=== PATIENT | male | born 2000 | race African-American/Black ===

== ENCOUNTER 2023-08-14 14:12 | Emergency (ER) | payer SELFPAY ==
[~2023-08-14] VITALS: Ht 167.6 cm; Wt 67.0 kg
[2023-08-14 14:28] VITALS: O2SAT 98
[2023-08-14] MEDS: LEVETIRACETAM 500MG PREMIX 100 ML IV ONE (15:00)
[2023-08-14 16:23] LABS: BASOPHILS % 0.2 % (0.0-2.0); EOSINOPHILS % 0.1 % (0.0-5.0); HEMATOCRIT. 44.6 % (42.0-52.0); HEMOGLOBIN. 14.4 g/dL (14.0-18.0); LYMPHOCYTES % 9.9 % (20.0-50.0); MEAN CORPUSCULAR HEMOGLOBIN 29.4 pg (28.0-32.0); MEAN CORPUSCULAR HGB CONC 32.3 g/dL (31.0-37.0); MEAN CORPUSCULAR VOLUME 91.1 fL (80.0-94.0); MEAN PLATELET VOLUME 8.4 fl (7.4-10.4); MONOCYTES % 6.8 % (2.0-8.0); PLATELET 261 x1000/uL (130-400); RED CELL DISTRIBUTION WIDTH 13.4 % (11.6-14.6); WHITE BLOOD COUNT 15.7 x1000/uL (4.5-11.0)
[2023-08-14 16:35] LABS: ALANINE AMINOTRANSFERASE 10 IU/L (10-49); ASPARTATE AMINOTRANSFERASE 34 IU/L (<34); BILIRUBIN TOTAL 0.7 mg/dL (0.1-1.0); CALCIUM 9.7 mg/dL (8.7-10.4); CARBON DIOXIDE 23 mEq/L (21-32); CHLORIDE 103 mEq/L (98-107); CREATININE 0.8 mg/dL (0.6-1.3); GLUCOSE 54 mg/dL (70-105); POTASSIUM 3.5 mEq/L (3.5-5.1); PROTEIN TOTAL 7.6 g/dL (6.0-8.3); SODIUM 139 mEq/L (136-145); UREA NITROGEN BLOOD 9 mg/dL (9-23)
[2023-08-14 17:40] VITALS: BP 118/76; PULSE 94; RESP 18; TEMP 98
== END 2023-08-14 17:44 | disposition home or self-care (01) ==
LOC: ER 14:12
DX: R56.9 Unspecified convulsions (principal)
CPT/HCPCS: 80053; 85025; 36415; 70450; 96374; 99285; J1953; Z7610

== ENCOUNTER 2023-10-14 14:14 | Emergency (ER) | payer SELFPAY ==
[~2023-10-14] VITALS: Ht 165.1 cm; Wt 61.2 kg
[2023-10-14 14:29] VITALS: BP 125/99; PULSE 60; RESP 16; TEMP 98.4; O2SAT 100
== END 2023-10-14 15:35 | disposition home or self-care (01) ==
LOC: ER 14:14
DX: R51.9 Headache, unspecified (principal)
CPT/HCPCS: 99281

== ENCOUNTER 2023-12-08 05:17 | Emergency (ER) | payer MEDICAID ==
[~2023-12-08] VITALS: Ht 167.6 cm; Wt 64.0 kg
[2023-12-08] MEDS: DEXAMETHASONE 4MG TABLET PO ONE (06:39)
[2023-12-08] MEDS ORDERED: IBUPROFEN 800MG TABLET PO ONE (09:00)
[2023-12-08] MEDS: IPRATROPIUM/ALBUTEROL 0.5-3(2.5)MG/3ML NEB HHN ONE (09:28)
[2023-12-08] MEDS: IPRATROPIUM/ALBUTEROL 0.5-3(2.5)MG/3ML NEB HHN NR (09:28)
[2023-12-08 09:30] VITALS: PULSE 72; RESP 20; O2SAT 98
[2023-12-08] MEDS ORDERED: ALBU6.7H15 INH (10:05)
[2023-12-08] MEDS ORDERED: P20 MT (10:05)
[2023-12-08] MEDS ORDERED: AMOX-494 MT (10:05)
[2023-12-08] MEDS: IBUPROFEN 800MG TABLET PO NR (10:21)
[2023-12-08 10:23] VITALS: BP 124/74; PULSE 72; RESP 12; TEMP 36.94740; O2SAT 98
== END 2023-12-08 10:32 | disposition home or self-care (01) ==
LOC: ER 05:17
DX: J32.9 Chronic sinusitis, unspecified (principal); J45.909 Unspecified asthma, uncomplicated; F17.210 Nicotine dependence, cigarettes, uncomplicated; F12.10 Cannabis abuse, uncomplicated; Z20.822 Contact with and (suspected) exposure to COVID-19
CPT/HCPCS: 87430; 87070; 71045; 94640; 99285; 87426; J8540; Z7610 ×6

== ENCOUNTER 2024-01-08 03:40 | Emergency (ER) | payer SELFPAY ==
[~2024-01-08] VITALS: Ht 165.1 cm; Wt 59.0 kg
[~2024-01-08 03:40] MED LIST: ALBU6.7H15 INH; AMOX-494 MT; P20 MT
[2024-01-08 03:45] VITALS: O2SAT 99
[2024-01-08 04:18] LABS: EOSINOPHILS % 0.3 % (0.0-5.0); HEMATOCRIT. 44.4 % (42.0-52.0); HEMOGLOBIN. 14.5 g/dL (14.0-18.0); LYMPHOCYTES % 31.8 % (20.0-50.0); MEAN CORPUSCULAR HEMOGLOBIN 30.2 pg (28.0-32.0); MEAN CORPUSCULAR HGB CONC 32.7 g/dL (31.0-37.0); MEAN CORPUSCULAR VOLUME 92.4 fL (80.0-94.0); MEAN PLATELET VOLUME 8.1 fl (7.4-10.4); NEUTROPHILS % 60.9 % (40.0-76.0); PLATELET 319 x1000/uL (130-400); RED BLOOD CELL COUNT 4.81 mill/uL (4.7-6.1); RED CELL DISTRIBUTION WIDTH 13.1 % (11.6-14.6); WHITE BLOOD COUNT 6.9 x1000/uL (4.5-11.0)
[2024-01-08 04:28] LABS: CHLORIDE 109 mEq/L (98-107); POTASSIUM 3.5 mEq/L (3.5-5.1); SODIUM 142 mEq/L (136-145)
[2024-01-08 04:29] LABS: CALCIUM 9.7 mg/dL (8.7-10.4); CARBON DIOXIDE 22 mEq/L (21-32)
[2024-01-08 04:34] LABS: CREATININE 0.8 mg/dL (0.6-1.3); GLUCOSE 99 mg/dL (70-105)
[2024-01-08 04:35] LABS: TROPONIN I HIGH SENSITIVITY < 4 ng/L (3.0-53); UREA NITROGEN BLOOD < 5 mg/dL (9-23)
[2024-01-08] MEDS ORDERED: LEVETIRACETAM 1000MG PREMIX 100 ML IV ONE (05:45)
[2024-01-08] MEDS: LEVETIRACETAM 1000MG PREMIX 100 ML IV NR (08:00)
[2024-01-08] MEDS ORDERED: B50 PO (09:47)
[2024-01-08 10:05] VITALS: BP 105/67; PULSE 69; RESP 18; TEMP 98.4
== END 2024-01-08 10:07 | disposition home or self-care (01) ==
LOC: ER 03:40
DX: R56.9 Unspecified convulsions (principal); F12.10 Cannabis abuse, uncomplicated
CPT/HCPCS: 80048; 80320; 85025; 84484; 36415; 71045; 93005; 96365; 99285; J1953; G0480

== ENCOUNTER 2024-02-24 01:19 | Emergency (ER) | payer MEDICAID ==
[~2024-02-24] VITALS: Ht 167.6 cm; Wt 55.8 kg
[~2024-02-24 01:19] MED LIST changes: +B50 PO
[2024-02-24 01:47] VITALS: BP 128/71; PULSE 98; RESP 15; TEMP 98.4; O2SAT 97
[2024-02-24 02:58] LABS: BASOPHILS % 0.7 % (0.0-2.0); EOSINOPHILS % 0.5 % (0.0-5.0); HEMATOCRIT. 42.9 % (42.0-52.0); HEMOGLOBIN. 13.5 g/dL (14.0-18.0); LYMPHOCYTES % 14.8 % (20.0-50.0); MEAN CORPUSCULAR HEMOGLOBIN 29.2 pg (28.0-32.0); MEAN CORPUSCULAR HGB CONC 31.5 g/dL (31.0-37.0); MEAN CORPUSCULAR VOLUME 92.5 fL (80.0-94.0); MEAN PLATELET VOLUME 7.6 fl (7.4-10.4); MONOCYTES % 6.5 % (2.0-8.0); NEUTROPHILS % 77.5 % (40.0-76.0); PLATELET 319 x1000/uL (130-400); RED BLOOD CELL COUNT 4.64 mill/uL (4.7-6.1); RED CELL DISTRIBUTION WIDTH 13.1 % (11.6-14.6); WHITE BLOOD COUNT 13.3 x1000/uL (4.5-11.0)
[2024-02-24 03:00] LABS: CHLORIDE 104 mEq/L (98-107); POTASSIUM 3.5 mEq/L (3.5-5.1); SODIUM 139 mEq/L (136-145)
[2024-02-24 03:01] LABS: CALCIUM 9.4 mg/dL (8.7-10.4); CARBON DIOXIDE 26 mEq/L (21-32)
[2024-02-24 03:06] LABS: CREATININE 0.8 mg/dL (0.6-1.3); GLUCOSE 88 mg/dL (70-105); UREA NITROGEN BLOOD 11 mg/dL (9-23)
[2024-02-24] MEDS: ACETAMINOPHEN 325MG TABLET PO STA (08:41)
== END 2024-02-24 09:59 | disposition home or self-care (01) ==
LOC: ER 01:19
DX: G40.909 Epilepsy, unspecified, not intractable, without status epilepticus (principal); F12.90 Cannabis use, unspecified, uncomplicated; R07.9 Chest pain, unspecified
CPT/HCPCS: 36415; 80048; 82962; 85025; 93005; 99284

== ENCOUNTER 2024-03-13 09:58 | Inpatient (IN) | payer OTHER, MEDICAID ==
[~2024-03-13] VITALS: Ht 165.1 cm; Wt 54.9 kg
[2024-03-13 10:41] LABS: BASOPHILS % 0.9 % (0.0-2.0); EOSINOPHILS % 2.3 % (0.0-5.0); HEMATOCRIT. 41.4 % (42.0-52.0); HEMOGLOBIN. 13.4 g/dL (14.0-18.0); LYMPHOCYTES % 47.4 % (20.0-50.0); MEAN CORPUSCULAR HEMOGLOBIN 30.1 pg (28.0-32.0); MEAN CORPUSCULAR HGB CONC 32.4 g/dL (31.0-37.0); MEAN PLATELET VOLUME 7.6 fl (7.4-10.4); MONOCYTES % 10.1 % (2.0-8.0); NEUTROPHILS % 39.3 % (40.0-76.0); PLATELET 312 x1000/uL (130-400); RED BLOOD CELL COUNT 4.45 mill/uL (4.7-6.1); RED CELL DISTRIBUTION WIDTH 12.7 % (11.6-14.6)
[2024-03-13 10:48] LABS: CHLORIDE 106 mEq/L (98-107); POTASSIUM 3.8 mEq/L (3.5-5.1); SODIUM 141 mEq/L (136-145)
[2024-03-13 10:49] LABS: CARBON DIOXIDE 29 mEq/L (21-32)
[2024-03-13 10:50] LABS: CALCIUM 9.2 mg/dL (8.7-10.4)
[2024-03-13 10:54] LABS: CREATININE 0.8 mg/dL (0.6-1.3); GLUCOSE 93 mg/dL (70-105); UREA NITROGEN BLOOD 7 mg/dL (9-23)
[2024-03-13] MEDS: LORAZEPAM 2MG/ML INJ IM ONE (11:27)
[2024-03-13] MEDS: ACETAMINOPHEN 500MG TABLET PO ONE (11:31)
[2024-03-13] MEDS: ONDANSETRON 4MG ODT PO ONE (11:33)
[2024-03-13] MEDS: LEVETIRACETAM 500MG PREMIX 100 ML IV ONE (12:07)
[2024-03-13] MEDS ORDERED: DOCUSATE SODIUM 100MG CAPSULE PO PRN (20:00)
[2024-03-13] MEDS ORDERED: ACETAMINOPHEN 325MG TABLET PO PRN (20:00)
[2024-03-13] MEDS ORDERED: MAGNESIUM/ALUMINUM HYDROXIDE/SIMETHICONE 30ML UDC PO PRN (20:00)
[2024-03-13] MEDS ORDERED: GUAIFENESIN 200MG/10ML SUGAR FREE UDC PO PRN (20:00)
[2024-03-13] MEDS ORDERED: CLONIDINE 0.1MG TABLET PO PRN (20:00)
[2024-03-13] MEDS ORDERED: LORAZEPAM 2MG/ML INJ IV PRN (20:00)
[2024-03-13] MEDS ORDERED: ONDANSETRON HCL 4MG/2ML INJ IV PRN (20:00)
[2024-03-13] MEDS ORDERED: LORAZEPAM 1MG TABLET PO PRN (20:00)
[2024-03-13] MEDS: ACETAMINOPHEN 325MG TABLET PO PRN (20:36)
[2024-03-13] MEDS: LEVETIRACETAM 500MG PREMIX 100 ML IV SCH (20:47)
[2024-03-13] MEDS: FAMOTIDINE 20MG/2ML VIAL IV SCH (20:49)
[2024-03-13] MEDS ORDERED: LEVETIRACETAM 500MG in NACL 100ML PREMIX IV SCH (21:00)
[2024-03-13 21:40] VITALS: BP 124/69; PULSE 76; RESP 20; TEMP 36.05844; TEMP 36.0844; O2SAT 99
[2024-03-13] MEDS: MVI, ADULT NO.1 10 ML, FOLIC ACID 1 MG, THIAMINE HCL 100 MG in SODIUM CHLORIDE 0.9% 1,0... IV SCH (23:43)
[2024-03-14] VITALS: BP 121/79; PULSE 68; RESP 19; TEMP 36.28068; O2SAT 100
[2024-03-14 00:51] LABS: IRON 229 ug/dL (65-175)
[2024-03-14 00:54] LABS: PHOSPHORUS 3.2 mg/dL (2.5-4.9); TOTAL IRON BINDING CAPACITY 457 ug/dl (250-425)
[2024-03-14 01:15] LABS: TROPONIN I HIGH SENSITIVITY < 4 ng/L (3.0-53)
[2024-03-14 04:00] VITALS: BP 114/72; PULSE 68; RESP 20; TEMP 36.78072; O2SAT 100
[2024-03-14 06:33] LABS: BASOPHILS % 0.5 % (0.0-2.0); EOSINOPHILS % 1.5 % (0.0-5.0); HEMOGLOBIN. 13.3 g/dL (14.0-18.0); LYMPHOCYTES % 39.2 % (20.0-50.0); MEAN CORPUSCULAR HGB CONC 32.3 g/dL (31.0-37.0); MEAN CORPUSCULAR VOLUME 92.7 fL (80.0-94.0); MEAN PLATELET VOLUME 8.4 fl (7.4-10.4); MONOCYTES % 7.4 % (2.0-8.0); NEUTROPHILS % 51.4 % (40.0-76.0); PLATELET 281 x1000/uL (130-400); RED BLOOD CELL COUNT 4.43 mill/uL (4.7-6.1); RED CELL DISTRIBUTION WIDTH 12.6 % (11.6-14.6)
[2024-03-14 06:49] LABS: CHLORIDE 104 mEq/L (98-107); POTASSIUM 3.4 mEq/L (3.5-5.1); SODIUM 140 mEq/L (136-145)
[2024-03-14 06:50] LABS: CALCIUM 9.6 mg/dL (8.7-10.4); CARBON DIOXIDE 28 mEq/L (21-32)
[2024-03-14 06:53] LABS: TRIGLYCERIDE 61 mg/dL (0-150)
[2024-03-14 06:54] LABS: FERRITIN 159 ng/mL (22-322)
[2024-03-14 06:55] LABS: CREATININE 0.7 mg/dL (0.6-1.3); FOLIC ACID (FOLATE) SERUM > 20.00 ng/mL (>5.38); GLUCOSE 111 mg/dL (70-105); UREA NITROGEN BLOOD 8 mg/dL (9-23); VITAMIN B12 SERUM 513 pg/mL (211-911)
[2024-03-14 06:56] LABS: LDL CHOLESTEROL 34 mg/dL (5-100)
[2024-03-14 06:57] LABS: ALANINE AMINOTRANSFERASE 18 IU/L (10-49); ALBUMIN 4.3 g/dL (3.2-4.8); ASPARTATE AMINOTRANSFERASE 26 IU/L (<34); BILIRUBIN DIRECT 0.4 mg/dL (<=3.0); CHOLESTEROL 107 mg/dL (<200); CREATINE KINASE 401 IU/L (46-171); HDL CHOLESTEROL 57 mg/dL (>55); THYROID STIMULATING HORMONE 2.86 uIU/mL (0.55-4.78)
[2024-03-14 06:58] LABS: BILIRUBIN TOTAL 1.2 mg/dL (0.1-1.0); PROTEIN TOTAL 6.3 g/dL (6.0-8.3)
[2024-03-14] MEDS: FOLIC ACID 1MG TABLET PO SCH (08:11)
[2024-03-14] MEDS: MULTIVITAMINS,THER W-MINERALS TABLET PO SCH (08:11)
[2024-03-14 08:31] VITALS: BP 118/73; PULSE 55; RESP 20; TEMP 36.50292; O2SAT 100
[2024-03-14 12:00] VITALS: BP_SYST 107; BP_SYST 120; BP_DIAS 55; BP_DIAS 62; PULSE 57; PULSE 62; RESP 18; RESP 20; TEMP 36.05844; TEMP 36.44736; O2SAT 98; O2SAT 99
[2024-03-14 16:04] VITALS: BP 115/79; PULSE 59; RESP 18; TEMP 36.44736; O2SAT 98
[2024-03-14 19:18] LABS: TROPONIN I HIGH SENSITIVITY < 4 ng/L (3.0-53)
[2024-03-14 20:00] VITALS: BP 109/63; PULSE 71; RESP 20; TEMP 36.3918; O2SAT 100
[2024-03-14] MEDS: POTASSIUM CHLORIDE 20MEQ TABLET SR PO NR (20:27)
[2024-03-15] VITALS: BP 105/77; PULSE 69; RESP 20; TEMP 36.3918; O2SAT 100
[2024-03-15 04:00] VITALS: BP 116/81; PULSE 70; RESP 20; TEMP 36.6696; O2SAT 100
[2024-03-15] MEDS ORDERED: LEVE500T19 MT ×2 (07:29→14:16)
[2024-03-15 08:20] VITALS: BP 105/67; PULSE 66; RESP 20; TEMP 36.05844; O2SAT 98
[2024-03-15 11:52] VITALS: BP 102/61; PULSE 56; RESP 20; TEMP 37.05852; O2SAT 98
[2024-03-15 15:35] VITALS: BP 102/61; PULSE 56; TEMP 98.7; O2SAT 98
[2024-03-15 16:00] VITALS: BP 106/55; PULSE 65; RESP 18; TEMP 37.16964; O2SAT 97
[2024-03-16] MEDS ORDERED: THIAMINE HCL 100MG TABLET PO SCH (09:00)
== END 2024-03-15 16:42 | disposition home or self-care (01) | DRG 53 ==
LOC: ER 09:58 → EDBEDREQ 14:46 → EDBEDREQTM 16:41 → 5WST 21:46 → 7WST 22:20
PROVIDERS: ADMIT Preventive Medicine Clinical Informatics; ATTEND Preventive Medicine Clinical Informatics
DX: G40.909 Epilepsy, unspecified, not intractable, without status epilepticus (principal); D64.9 Anemia, unspecified; F10.129 Alcohol abuse with intoxication, unspecified; Y90.6 Blood alcohol level of 120-199 mg/100 ml; R07.89 Other chest pain; E87.6 Hypokalemia; Z79.899 Other long term (current) drug therapy
CPT/HCPCS: 36415; 71045; 80048; 80061; 80076; 80320; 82550; 82607; 82728; 82746; 83540; 83550; 83735; 84100; 84439; 84443; 84484; 85025; 99285; J1953; J2060; J3411; J3490; J7030; Q0162; G0480

== ENCOUNTER 2024-03-24 17:35 | Emergency (ER) | payer MEDICAID, OTHER ==
[~2024-03-24] VITALS: Ht 165.1 cm; Wt 55.0 kg
[~2024-03-24 17:35] MED LIST changes: -AMOX-494 MT; -B50 PO; +LEVE500T19 MT; -P20 MT
[2024-03-24 17:39] VITALS: O2SAT 98
[2024-03-24 18:24] VITALS: BP 107/73; PULSE 84; RESP 16; TEMP 36.83628; O2SAT 96
== END 2024-03-24 18:29 | disposition home or self-care (01) ==
LOC: ER 17:35
DX: G40.909 Epilepsy, unspecified, not intractable, without status epilepticus (principal); F12.90 Cannabis use, unspecified, uncomplicated
CPT/HCPCS: 99281

== ENCOUNTER 2024-04-04 01:41 | Emergency (ER) | payer OTHER ==
[~2024-04-04] VITALS: Ht 162.6 cm; Wt 54.0 kg
[2024-04-04 02:12] VITALS: BP 119/82; RESP 18; TEMP 98.8; O2SAT 100
[2024-04-04 02:14] VITALS: PULSE 122; O2SAT 98
[2024-04-04] MEDS: LEVETIRACETAM 500MG TABLET PO ONE (03:45)
== END 2024-04-04 04:28 | disposition home or self-care (01) ==
LOC: ER 01:41
DX: G40.909 Epilepsy, unspecified, not intractable, without status epilepticus (principal); F12.10 Cannabis abuse, uncomplicated
CPT/HCPCS: 99283